=== PATIENT | female | born 1940 | race Caucasian/White ===

== ENCOUNTER → 2017-08-01 | Day surgery (SDC) | payer MEDICARE, BC ==
[~2017-08-01] MED LIST: Brimonidine 0.2% Ophth Soln 5 ML Bottle EYERT SCH; Phenylephrine 2.5% Ophth Soln 2 ML Bot EYERT SCH
== END ==
LOC: JD.SDS 12:42
PROVIDERS: ATTEND Ophthalmology
DX: H26.491 Other secondary cataract, right eye (principal); H35.3131 Nonexudative age-related macular degeneration, bilateral, early dry stage; H35.363 Drusen (degenerative) of macula, bilateral; H16.223 Keratoconjunctivitis sicca, not specified as Sjogren's, bilateral; H16.103 Unspecified superficial keratitis, bilateral; M05.89 Other rheumatoid arthritis with rheumatoid factor of multiple sites; M19.90 Unspecified osteoarthritis, unspecified site; Z83.511 Family history of glaucoma; Z98.41 Cataract extraction status, right eye; Z98.42 Cataract extraction status, left eye; Z96.1 Presence of intraocular lens; Z79.899 Other long term (current) drug therapy